=== PATIENT | male | born 1965 | race Caucasian/White ===

== ENCOUNTER 2018-02-06 06:09 | Emergency (ER) | payer OTHER ==
--- NOTE | 2018-02-06 06:37 | ED ---
Throat Pain/Nasal Congestion - HPI Summary HPI Summary: 52 year old male presents with sore throat for the past 24 hours. He states he was in contact with women who may have had strep. He states that he has been trying to clear his throat and once there was some trace blood in the mucous. He admits to cough. He admits to sinus congestion but has had congestion at baseline due to allergies. He admits to right ear pain. He notes occasional headaches. No chest pain or shortness breath. No abdominal pain. No nausea no vomiting. Did have some alcohol last night. He is nonsmoker. Does not have a history of asthma or COPD. Hasn't tried anything for his symptoms. He states pain is greatest on right side of throat. He denies any drooling or difficulty managing secretions. - History of Current Complaint Chief Complaint: EDThroatPain Time Seen by Provider: 02/06/18 06:19 - Allergies/Home Medications Allergies/Adverse Reactions: Allergies Allergy/AdvReac Type Severity Reaction Status Date / Time CHRISTOPHER Inhibitors Allergy Coughing Verified 02/06/18 06:12 Home Medications: Home Medications Tenofovir/Emtricitab 200/300 * [Truvada 200/300 mg*] 200 mg PO DAILY 02/06/18 [ History Confirmed 02/06/18] PMH/Surg Hx/FS Hx/Imm Hx Endocrine/Hematology History: Denies: Hx Anticoagulant Therapy Cardiovascular History: Reports: Hx Hypertension - Immunization History Date of Tetanus Vaccine: utd Date of Influenza Vaccine: fall 2016 Infectious Disease History: No Infectious Disease History: Denies: Traveled Outside the [place] in Last 30 Days - Family History Known Family History: Positive: Hypertension - Social History Alcohol Use: Rare Substance Use Type: Reports: None Smoking Status (MU): Never Smoked Tobacco Review of Systems Negative: Fever Positive: Sore Throat, Ear Ache, Nasal Discharge Negative: Chest Pain Positive: Cough. Negative: Shortness Of Breath All Other Systems Reviewed And Are Negative: Yes Physical Exam Triage Information Reviewed: Yes Vital Signs On Initial Exam: Initial Vitals Temp Pulse Resp BP Pulse Ox 98.1 F 78 16 146/103 98 02/06/18 06:12 02/06/18 06:12 02/06/18 06:12 02/06/18 06:12 02/06/18 06:12 Vital Signs Reviewed: Yes Appearance: Positive: Well-Appearing Skin: Positive: Warm, Dry Head/Face: Positive: Normal Head/Face Inspection Eyes: Positive: Normal, Conjunctiva Clear ENT: Positive: Pharyngeal erythema, TMs normal, Uvula midline, Other - soft palate symmetric. Negative: Tonsillar swelling, Tonsillar exudate, Trismus, Muffled voice Neck: Positive: Supple, Nontender, Enlarged Nodes @ - right cervical Respiratory/Lung Sounds: Positive: Clear to Auscultation, Breath Sounds Present Cardiovascular: Positive: Normal, RRR Abdomen Description: Positive: Nontender, Soft Bowel Sounds: Positive: Present Musculoskeletal: Positive: Normal Neurological: Positive: Normal Psychiatric: Positive: Normal Diagnostics - Vital Signs Vital Signs Temp Pulse Resp BP Pulse Ox 02/06/18 06:12 98.1 F 78 16 146/103 98 - Laboratory Lab Statement: Any lab studies that have been ordered have been reviewed, and results considered in the medical decision making process. EENT Course/Dx - Course Course Of Treatment: 52 year old male presents with sore throat for the past 24 hours. He states he was in contact with women who may have had strep. He states that he has been trying to clear his throat and once there was some trace blood in the mucous. He admits to cough. He admits to sinus congestion but has had congestion at baseline due to allergies. He admits to right ear pain. He notes occasional headaches. No chest pain or shortness breath. No abdominal pain. No nausea no vomiting. Did have some alcohol last night. He is nonsmoker. Does not have a history of asthma or COPD. Hasn't tried anything for his symptoms. He states pain is greatest on right side of throat. He denies any drooling or difficulty managing secretions. on exam phaynx erythematous, uvula midline, soft palate symmetric. managing airway with no drooling. strep neg. will treat with steriod and magic mouth wash. patient understand and agrees with plan. - Differential Diagnoses Differential Diagnoses: Pharyngitis, Temporal Arteritis, Tonsilitis, URI/ Bronchitis - Diagnoses Provider Diagnoses: Pharyngitis Discharge - Sign-Out/Discharge Documenting (check all that apply): Patient Departure - Discharge Plan Condition: Good Disposition: HOME Patient Education Materials: Pharyngitis (ED) Referrals: Luis Prabhakar MD [Primary Care Provider] - Additional Instructions: Magic mouthwash 5ml swish and spit can use 4x a day Take steroid once a day for 5 days Take Tylenol or ibuprofen for pain every 6 hours Can use cough drops or products such as cloraseptic spray Establish care with primary care physician Return to ED if develop fever does not respond to Tylenol or ibuprofen, inability to swallow, or difficulty breathing or any new or worsening symptoms - Billing Disposition and Condition Condition: GOOD Disposition: Home
[2018-02-06 07:41] VITALS: BP 133/87
== END 2018-02-06 07:41 | disposition home or self-care (01) ==
LOC: ED 06:09
DX: J02.9 Acute pharyngitis, unspecified (principal); R05 Cough; H92.09 Otalgia, unspecified ear
CPT/HCPCS: 87651; 99282